=== PATIENT | female | born 1965 | race African-American/Black ===

== ENCOUNTER 2016-10-09 10:00 | Emergency (ER) | payer OTHER ==
[2016-10-09 10:06] VITALS: BMI 30.6
[2016-10-09] MEDS ORDERED: morphine CARPU-JECT 2 MG/1 ML DISP.SYRIN SQ ONE (11:14)
[2016-10-09] MEDS ORDERED: SODIUM CHLORIDE 1,000 ML IV STA ×2 (11:14→13:51)
[2016-10-09] MEDS ORDERED: morphine CARPU-JECT 4 MG/1 ML DISP.SYRIN ONE (11:27)
--- NOTE | 2016-10-09 11:33 | PDOC ---
History of Present Illness - General Chief Complaint: Sickle Cell Crisis Stated Complaint: SICKLE CELL CRISIS Time Seen by Provider: 10/09/16 10:29 History Source: Patient Exam Limitations: No Limitations - History of Present Illness Initial Comments: 10/09/16 11:09 51-year-old female presents to the ED with complaints of sickle cell pain to the right hip intermittently for the past month unrelieved with over-the- counter meds but states ran out of her meds 2 days ago and decided come to the ER for further evaluation. Patient states is followed at the [facility] sickle cell clinic and recently was started on hydroxyurea which she states didn't alleviate her symptoms initially. Patient denies fever, chills, chest pain but does state shortness of breath on exertion. Patient has no other complaints at this time. Timing/Duration: getting worse Severity: moderate Associated Symptoms: reports: denies symptoms, shortness of breath, weakness Past History - Travel Traveled outside of the country in the last 30 days: No Close contact w/someone who was outside of country & ill: No - Past Medical History Allergies/Adverse Reactions: Allergies Allergy/AdvReac Type Severity Reaction Status Date / Time aspirin Allergy Verified 10/09/16 10:02 Penicillins Allergy Verified 10/09/16 10:02 Home Medications: Ambulatory Orders Folic Acid - 1 mg PO DAILY #30 tablet 07/30/14 Acetaminophen W/ Codeine #3 [Tylenol # 3 -] 1 tab PO Q6H 10/09/16 Cholecalciferol (Vitamin D3) [Vitamin D3] 2,000 unit PO DAILY 10/09/16 Cyanocobalamin [Vitamin B12 -] 1,000 mcg PO DAILY #30 tab 10/09/16 Hydroxyurea [Hydrea] 1,000 mg PO BID #120 tab 10/09/16 Levothyroxine [Synthroid -] 100 mcg PO DAILY@0700 #120 tab 10/09/16 Oxycodone HCl/Acetaminophen [Percocet 5-325 mg Tablet] 1 - 2 tab PO Q6H PRN #20 tab MDD 4 10/09/16 Pantoprazole Sodium [Protonix -] 20 mg PO DAILY 10/09/16 Anemia: Yes (sickle cell anemia) Asthma: No Cancer: No Cardiac Disorders: No CVA: No COPD: No CHF: No Dementia: No Diabetes: No GI Disorders: No Disorders: No HTN: No Hypercholesterolemia: No Liver Disease: No Suicide Attempt (Hx): No Seizures: No Thyroid Disease: Yes - Surgical History Abdominal Surgery: No Cardiac Surgery: No Cholecystectomy: Yes Lung Surgery: No Neurologic Surgery: No Orthopedic Surgery: No - Psycho/Social/Smoking Cessation Hx Suicidal Ideation: No Smoking Status: No Smoking History: Never smoked Have you smoked in the past 12 months: No Number of Cigarettes Smoked Daily: 0 Hx Alcohol Use: No Drug/Substance Use Hx: No Substance Use Type: None Hx Substance Use Treatment: No Patient Lives Alone: No Review of Systems - Review of Systems Able to Perform ROS?: Yes Constitutional: Yes: Weakness HEENTM: No: Symptoms Reported Respiratory: Yes: SOB with Exertion Cardiac (ROS): No: Symptoms Reported ABD/GI: No: Symptoms Reported : No: Symptoms Reported Musculoskeletal: Yes: Joint Pain (rt hip) Integumentary: No: Symptoms Reported Neurological: Yes: Weakness (mild generalized) Hematologic/Lymphatic: Yes: See HPI *Physical Exam - Vital Signs Last Vital Signs Temp Pulse Resp BP Pulse Ox 97.9 F 108 H 19 139/87 98 10/09/16 10:02 10/09/16 10:02 10/09/16 10:02 10/09/16 10:02 10/09/16 10:17 - Physical Exam General Appearance: Yes: Nourished, Appropriately Dressed. No: Apparent Distress HEENT: positive: EOMI, ALTHEA, Pale Conjunctivae, Scleral Icterus (R), Scleral Icterus (L) Neck: positive: Normal Thyroid, Supple. negative: Tender, Decreased range of motion Respiratory/Chest: positive: Lungs Clear, Normal Breath Sounds. negative: Respiratory Distress, Accessory Muscle Use Cardiovascular: positive: Regular Rhythm, Regular Rate (92 rate). negative: Murmur Vascular Pulses: Dorsalis-Pedis (R): 2+, Doralis-Pedis (L): 2+ Musculoskeletal: negative: CVA Tenderness, Vertebral Tenderness Extremity: positive: Normal Capillary Refill, Normal Inspection, Normal Range of Motion. negative: Tender, Pedal Edema Integumentary: positive: Normal Color, Warm, Moist Neurologic: positive: Motor Strength 5/5 (ambulatory) ED Treatment Course - LABORATORY CBC & Chemistry Diagram: 10/09/16 11:20 10/09/16 11:20 Medical Decision Making - Medical Decision Making 10/09/16 11:33 Patient with history of sickle cell disease presents the ED with sickle cell crisis to the right hip and states ran out of medication including hydroxyurea. Patient is also complaining presently of shortness of breath on exertion. Patient on exam had bilateral pale conjunctiva along with scleral icterus. Patient had no point tenderness to the right hip or decreased range of motion.Patient ordered for type and screen, labs, reticulocyte count, IV fluids , analgesics, urine, and EKG. 10/09/16 13:40 Laboratory Tests 10/09/16 11:20 Urine Ketones Negative Urine Bilirubin 1+ H Ur Leukocyte Esterase Trace H Laboratory Tests 10/09/16 10/09/16 10/09/16 11:20 11:20 11:20 WBC 6.8 Hgb 11.3 D Hct 32.6 D Plt Count 187 Retic Count INR 1.07 Sodium 136 Potassium 4.1 Chloride 104 Carbon Dioxide 22 Anion Gap 10 BUN 6 L D Creatinine 0.9 D Creat Clearance w eGFR > 60 Random Glucose 112 H Calcium 9.6 Total Bilirubin 4.1 H D AST 46 H Alkaline Phosphatase 193 H D Total Protein 8.3 H D 10/09/16 11:20 WBC Hgb Hct Plt Count Retic Count 7.60 H D INR Sodium Potassium Chloride Carbon Dioxide Anion Gap BUN Creatinine Creat Clearance w eGFR Random Glucose Calcium Total Bilirubin AST Alkaline Phosphatase Total Protein 10/09/16 14:56 Laboratory Tests 10/09/16 11:20 Urine Bilirubin 1+ H Ur Leukocyte Esterase Trace H Urine WBC 2 10/09/16 15:11 Patient states feeling much better and requesting to go home. Patient will be given refills for medication that she may need along with Percocet. Patient and will follow-up at [facility] sickle cell clinic. *DC/Admit/Observation/Transfer Diagnosis at time of Disposition: Sickle cell pain crisis - Discharge Dispostion Disposition: HOME Condition at time of disposition: Improved - Prescriptions Prescriptions: Hydroxyurea [Hydrea] 1,000 mg PO BID #120 tab Oxycodone HCl/Acetaminophen [Percocet 5-325 mg Tablet] 1 - 2 tab PO Q6H PRN #20 tab MDD 4 PRN Reason: Pain Levothyroxine [Synthroid -] 100 mcg PO DAILY@0700 #120 tab Cyanocobalamin [Vitamin B12 -] 1,000 mcg PO DAILY #30 tab - Referrals Referrals: Merissa Mcclure MD [Primary Care Provider] - - Patient Instructions Printed Discharge Instructions: DI for Sickle Cell Anemia, Pain Crisis -- Adult Additional Instructions: Continue taking your medication as prescribed and take Percocet as needed for discomfort. Drink plenty of fluids and follow guidelines for sickle cell. At this time you are not anemic but if your symptoms are to continue or worsen please return to ED. otherwise follow-up with the [facility] sickle cell clinic.
[2016-10-09] MEDS ORDERED: morphine CARPU-JECT 4 MG/1 ML DISP.SYRIN IVPUSH ONE (11:41)
[2016-10-09 11:53] LABS: BASOPHIL 0.7 % (0-2.0); EOSINOPHIL 0.5 % (0-4.5); MCH 32.7 pg (25.7-33.7); MCHC 34.6 g/dl (32.0-36.0); MEAN CELL VOLUME 94.4 fl (80-96); NEUTROPHILS 71.4 % (42.8-82.8); PLATELET COUNT 187 K/MM3 (134-434); RDW 15.3 % (11.6-15.6); WHITE BLOOD COUNT 6.8 K/mm3 (4.0-10.0)
[2016-10-09 12:24] LABS: ALBUMIN 4.2 g/dl (3.4-5.0); ANION GAP 10 (8-16); BILIRUBIN,TOTAL 4.1 mg/dL (0.2-1.0); CALCIUM 9.6 mg/dL (8.5-10.1); CO2 22 mmol/L (21-32); CREATININE 0.9 mg/dL (0.55-1.02); GLUCOSE,RANDOM 112 mg/dL (74-106); INR 1.07 (0.82-1.09); PROTHROMBIN TIME (PATIENT) 11.8 SEC (9.98-11.88); SGOT/AST 46 U/L (15-37); SGPT/ALT 60 U/L (12-78); TOT PROT 8.3 g/dl (6.4-8.2)
[2016-10-09 12:25] LABS: ALK PHOS 193 U/L (45-117)
[2016-10-09 13:23] LABS: PH,URINE 5.5 (5.0-8.0); URINE APPEARANCE CLEAR; URINE BILIRUBIN 1+ (NEGATIVE); URINE BLOOD NEGATIVE (NEGATIVE); URINE COLOR YELLOW; URINE GLUCOSE (UA) NEGATIVE (NEGATIVE); URINE KETONE NEGATIVE (NEGATIVE); URINE NITRITE NEGATIVE (NEGATIVE); URINE PROTEIN NEGATIVE (NEGATIVE); URINE UROBILINOGEN 1.0 E.U/dl E.U./dl (0.2-1.0)
[2016-10-09 13:27] LABS: URINE LEUK ESTERASE TRACE (NEGATIVE)
[2016-10-09] MEDS ORDERED: OXYCODONE/APAP 5/325MG COMBO TABLET PO ONE (13:51)
[2016-10-09 13:52] LABS: URINE BACTERIA RARE /hpf (NONE SEEN); URINE MUCUS RARE; URINE RBC <1 /hpf (0-3); URINE WBC 2 /hpf (3-5)
[2016-10-09] MEDS ORDERED: OXYCODONE/APAP 5/325MG COMBO TABLET ONE (13:59)
[2016-10-09 15:48] VITALS: BP 122/80; PULSE 88; TEMP 97.7
--- NOTE | 2016-10-09 15:51 | EKG ---
Test Reason : Blood Pressure : / mmHG Vent. Rate : 100 BPM Atrial Rate : 100 BPM P-R Int : 160 ms QRS Dur : 088 ms QT Int : 366 ms P-R-T Axes : 060 030 052 degrees QTc Int : 472 ms NORMAL SINUS RHYTHM NORMAL ECG WHEN COMPARED WITH ECG OF 26-JUL-2014 20:37, ST NO LONGER DEPRESSED IN INFERIOR LEADS ST NO LONGER DEPRESSED IN ANTERIOR LEADS T WAVE INVERSION NO LONGER EVIDENT IN INFERIOR LEADS NONSPECIFIC T WAVE ABNORMALITY, IMPROVED IN LATERAL LEADS Confirmed by TAJ ORDAZ MD ([id number]) on 10/09/2016 3:51:09 PM Referred By: Confirmed By:TAJ ORDAZ MD
== END 2016-10-09 15:48 | disposition home or self-care (01) ==
LOC: JER 10:00
PROC: 3E0337Z Introduction of Electrolytic and Water Balance Substance into Peripheral Vein, Percutaneous Approach (ICD-10-PCS; principal; 2016-10-09)
PROC: 3E033NZ Introduction of Analgesics, Hypnotics, Sedatives into Peripheral Vein, Percutaneous Approach (ICD-10-PCS; 2016-10-09)
DX: D57.00 Hb-SS disease with crisis, unspecified (principal)
CPT/HCPCS: 36415; 80053; 81003; 81015; 85025; 85044; 85610; 93005; 93010; 99285-25